=== PATIENT | female | born 1945 | race Caucasian/White ===

== ENCOUNTER 2020-03-18 16:42 | Emergency (ER) | payer MEDICARE, BC ==
--- NOTE | 2020-03-18 17:21 | CR ---
INDICATION: Pain after a fall. LEFT ANKLE: Four images of the left ankle with three projections revealed an oblique fracture through the distal shaft - metaphysis of the fibula with minimal lateral offset of the distal fracture fragment and overlying soft tissue swelling at the lateral malleolus. The ankle mortise otherwise appeared fairly intact. Dome of the talus was intact. No other significant bone or joint abnormality was suggested. IMPRESSION: Distal fibular fracture fragments with adequate position and alignment. MTDD
[2020-03-18] MEDS ORDERED: Naproxen 500 MG Tab PO ONE (17:47)
[2020-03-18] MEDS ORDERED: Acetaminophen 500 MG Tab PO ONE (17:47)
--- NOTE | 2020-03-18 17:53 | EDM.PDOC ---
ED HPI GENERAL MEDICAL PROBLEM - General Chief Complaint: Lower Extremity Injury/Pain Stated Complaint: FELL,HURT LEFT ANKLE Time Seen by Provider: 03/18/20 16:50 Source of Information: Reports: Patient, Family History Limitations: Reports: No Limitations - History of Present Illness INITIAL COMMENTS - FREE TEXT/NARRATIVE: Patient presented to the ED because of a left ankle pain. She was apparently standing on a bar stool, tipped over , fell and landed on her left ankle. She c/o 5/10 pain which is worse with ambulation. left ankle Pain Score (Numeric/FACES): 6 - Related Data Allergies Allergy/AdvReac Type Severity Reaction Status Date / Time No Known Allergies Allergy Verified 03/18/20 16:50 Home Meds: Home Meds Levothyroxine [Synthroid] 100 mcg PO ACBREAKFAST 03/18/20 [History] Past Medical History Endocrine/Metabolic History: Reports: Hypothyroidism Social & Family History - Tobacco Use Tobacco Use Status *Q: Never Tobacco User Review of Systems - Review of Systems Review Of Systems: See Below Constitutional: Reports: No Symptoms Ears: Reports: No Symptoms Nose: Reports: No Symptoms Mouth/Throat: Reports: No Symptoms Respiratory: Reports: No Symptoms Cardiovascular: Reports: No Symptoms GI/Abdominal: Reports: No Symptoms Genitourinary: Reports: No Symptoms Musculoskeletal: Reports: Other (left ankle pain) Skin: Reports: No Symptoms ED EXAM, GENERAL - Physical Exam Exam: See Below Exam Limited By: No Limitations General Appearance: Alert, No Apparent Distress Ears: Normal External Exam, Normal Canal Nose: Normal Inspection, Normal Mucosa, No Blood Throat/Mouth: Normal Inspection, Normal Lips, Normal Teeth Head: Atraumatic, Normocephalic Neck: Normal Inspection, Supple, Non-Tender, Full Range of Motion Respiratory/Chest: No Respiratory Distress, Lungs Clear, Normal Breath Sounds Cardiovascular: Normal Peripheral Pulses, Regular Rate, Rhythm, No Edema, No Gallop, No JVD, No Murmur GI/Abdominal: Normal Bowel Sounds, Soft, Non-Tender, No Organomegaly Back Exam: Normal Inspection, Full Range of Motion Extremities: Normal Inspection, Normal Range of Motion, Other (tenderness and swelling lleft ankle-lateral side) Neurological: Alert, Oriented, CN II-XII Intact Course - Vital Signs Text/Narrative:: Xray left ankle-see result Naproxen 500 mg and tylenol 1000 mg po x1 crutches and ortho boots provided Last Recorded V/S: Last Vital Signs Temp 36.4 C 03/18/20 18:00 Pulse 75 03/18/20 18:00 Resp 17 03/18/20 18:00 BP 137/89 03/18/20 18:00 Pulse Ox 95 03/18/20 18:00 - Orders/Labs/Meds Meds: Medications Discontinued Medications Generic Name Dose Route Start Last Admin Trade Name Emery PRMaritza Reason Stop Dose Admin Acetaminophen 1,000 mg 03/18/20 17:47 03/18/20 17:53 Tylenol Extra Strength PO 03/18/20 17:48 1,000 mg ONETIME ONE Administration Naproxen 500 mg 03/18/20 17:47 03/18/20 17:53 Naprosyn PO 03/18/20 17:48 500 mg ONETIME ONE Administration Departure - Departure Time of Disposition: 18:00 Disposition: Home, Self-Care 01 Condition: Good Clinical Impression: Left fibular fracture, Fracture of fibula - Discharge Information Instructions: Crutch Use, Adult, [id number], Ankle Fracture Referrals: Elroy Hensley MD [Primary Care Provider] - Forms: ED Department Discharge Additional Instructions: Please read discharge instructions on fibular fracture Wear your ortho boots at all times except when you apply ice Do not step on your left foot Take aleve, 2 tablets with tylenol 1000 mg every 12 hours as needed for pain Follow up with your orthopedic surgeon in 7 days Sepsis Event Note (ED) - Evaluation Sepsis Screening Result: No Definite Risk - Focused Exam Vital Signs: Vital Signs Temp Pulse Resp BP Pulse Ox 03/18/20 18:00 36.4 C 75 17 137/89 95 03/18/20 16:42 36.6 C 32 L 17 107/77 95
== END 2020-03-18 18:25 | disposition home or self-care (01) ==
LOC: FB.ED 16:42
DX: S82.832A Other fracture of upper and lower end of left fibula, initial encounter for closed fracture (principal); E03.9 Hypothyroidism, unspecified; Z79.899 Other long term (current) drug therapy; W08.XXXA Fall from other furniture, initial encounter
CPT/HCPCS: 73610-LT; 99283; A9270-GY

== ENCOUNTER 2023-05-20 10:32 | Inpatient (IN) | payer MEDICARE, BC ==
[2023-05-20] MEDS ORDERED: Sodium Chloride 0.9% 10 ML Syringe FLUSH PRN (10:44)
[2023-05-20 11:19] LABS: BASOPHILS PERCENT AUTO 0.2 % (0.2-1.5); HEMATOCRIT 42.3 % (34.2-48.2); HEMOGLOBIN 14.3 g/dL (11.4-15.5); LYMPHOCYTES ABSOLUTE AUTO 0.9 x10-3/uL (1.0-4.4); LYMPHOCYTES PERCENT AUTO 11.4 % (18.4-52.1); MEAN CORPUSCULAR HEMOGLOBIN 29.8 pg (23.9-33.9); MEAN CORPUSCULAR HGB CONC 33.7 g/dL (31.9-34.8); MEAN CORPUSCULAR VOLUME 88.4 fL (76.7-100.5); MEAN PLATELET VOLUME 9.6 fL (7.1-12.4); MONOCYTES ABSOLUTE AUTO 1.1 x10-3/uL (0.3-1.0); NEUTROPHILS ABSOLUTE AUTO 6.1 x10-3/uL (1.5-6.3); NEUTROPHILS PERCENT AUTO 75.4 % (30.8-76.2); PLATELET COUNT,PLT 168 x10(3)uL (151-488); RED BLOOD CELL COUNT 4.79 x10(6)uL (3.60-5.20); RED CELL DISTRIBUTION WIDTH 14.1 % (12.3-16.5); WHITE BLOOD CELL COUNT,WBC 8.1 x10-3/uL (3.0-10.3)
[2023-05-20 11:20] LABS: BLOOD UREA NITROGEN,BUN 12 mg/dL (7-18); CALCIUM 9.4 mg/dL (8.6-10.2); CARBON DIOXIDE,CO2 30 mmol/L (21-32); CHLORIDE,CL 101 mmol/L (100-110); CREATININE 0.6 mg/dL (0.55-1.02); ESTIMATED GFR 93 mL/min (>60); GLUCOSE RANDOM 134 mg/dL (80-116); POTASSIUM,K 3.5 mmol/L (3.5-5.3); SODIUM,NA 139 mmol/L (135-145)
[2023-05-20 11:26] LABS: A/G RATIO 0.7; ALANINE AMINOTRANSFERASE,ALT 17 U/L (12-36); ALBUMIN 2.7 g/dL (3.2-4.6); ALKALINE PHOSPHATASE 93 IU/L (56-112); AMYLASE 41 U/L (25-115); ASPARTATE AMNIOTRANSFERASE,AST 25 IU/L (5-25); BILIRUBIN TOTAL 0.7 mg/dL (0.1-1.3); PROTEIN TOTAL,TP 6.6 g/dL (6.0-8.0)
[2023-05-20 11:30] LABS: LACTIC ACID 0.6 mmol/L (0.4-2.0)
[2023-05-20 11:42] LABS: BILIRUBIN,URINE NEGATIVE (NEGATIVE); GLUCOSE,URINE NORMAL (NORMAL); KETONES,URINE 50 mg/dL (NEGATIVE); LEUKOCYTE ESTERASE,URINE NEGATIVE (NEGATIVE); NITRITE,URINE NEGATIVE (NEGATIVE); OCCULT BLOOD,URINE NEGATIVE (NEGATIVE); PROTEIN,URINE TRACE mg/dL (NEGATIVE); UROBILINOGEN,URINE 1 mg/dL (NEGATIVE)
[2023-05-20 11:46] LABS: APPEARANCE,URINE CLEAR (CLEAR); COLOR,URINE YELLOW (YELLOW)
[2023-05-20 11:47] LABS: BACTERIA,URINE FEW (NS); SQUAMOUS EPITHELIAL CELLS,UR OCCASIONAL (NS,R,O); WBC,URINE 0-5 (0-5)
[2023-05-20] MEDS: Sodium Chloride 0.9% 1,000 ML IV SCH ×2 (12:00→13:53)
[2023-05-20] MEDS: Iopamidol 755 Mg/ML 100 ML Bottle IV SCH (12:10)
[2023-05-20] MEDS ORDERED: Ondansetron 4 MG/2 ML SDV IV PRN (17:41)
[2023-05-20 19:00] LABS: INFLUENZA A NAA NEGATIVE (NEGATIVE); INFLUENZA B NAA NEGATIVE (NEGATIVE); RESPIRATORY SYNCYTIAL VIR NAA NEGATIVE (NEGATIVE)
[2023-05-20 19:01] LABS: CORONAVIRUS COVID-19 NAA NEGATIVE (NEGATIVE)
[2023-05-20] MEDS: Enoxaparin 40 MG/0.4 ML Syringe SUBCUT SCH (20:53)
[2023-05-20] MEDS: Sennosides/Docusate Sodium 50-8.6 MG Tab PO PRN (20:56)
[2023-05-21 07:11] LABS: BASOPHILS PERCENT AUTO 0.3 % (0.2-1.5); EOSINOPHILS PERCENT AUTO 0.2 % (0.6-8.1); HEMOGLOBIN 13.9 g/dL (11.4-15.5); LYMPHOCYTES ABSOLUTE AUTO 1.9 x10-3/uL (1.0-4.4); LYMPHOCYTES PERCENT AUTO 24.4 % (18.4-52.1); MEAN CORPUSCULAR HEMOGLOBIN 29.6 pg (23.9-33.9); MEAN CORPUSCULAR VOLUME 89.7 fL (76.7-100.5); MEAN PLATELET VOLUME 10.1 fL (7.1-12.4); MONOCYTES ABSOLUTE AUTO 1.3 x10-3/uL (0.3-1.0); MONOCYTES PERCENT AUTO 15.8 % (4.4-15.7); NEUTROPHILS ABSOLUTE AUTO 4.7 x10-3/uL (1.5-6.3); NEUTROPHILS PERCENT AUTO 59.3 % (30.8-76.2); PLATELET COUNT,PLT 157 x10(3)uL (151-488); RED BLOOD CELL COUNT 4.68 x10(6)uL (3.60-5.20); RED CELL DISTRIBUTION WIDTH 14.1 % (12.3-16.5)
[2023-05-21 07:18] LABS: A/G RATIO 0.6; ALANINE AMINOTRANSFERASE,ALT 18 U/L (12-36); ALBUMIN 2.3 g/dL (3.2-4.6); ALKALINE PHOSPHATASE 93 IU/L (56-112); ASPARTATE AMNIOTRANSFERASE,AST 24 IU/L (5-25); BILIRUBIN TOTAL 0.5 mg/dL (0.1-1.3); BLOOD UREA NITROGEN,BUN 9 mg/dL (7-18); CALCIUM 8.8 mg/dL (8.6-10.2); CARBON DIOXIDE,CO2 29 mmol/L (21-32); CHLORIDE,CL 107 mmol/L (100-110); CREATININE 0.5 mg/dL (0.55-1.02); ESTIMATED GFR 97 mL/min (>60); GLUCOSE RANDOM 102 mg/dL (80-116); POTASSIUM,K 3.3 mmol/L (3.5-5.3); PROTEIN TOTAL,TP 5.9 g/dL (6.0-8.0); SODIUM,NA 142 mmol/L (135-145)
[2023-05-21] MEDS: Citalopram 20 MG Tab PO SCH (10:05)
[2023-05-21] MEDS: Divalproex Sodium Delayed-Release 250 MG Tab.CR PO SCH (10:05)
[2023-05-21] MEDS: hydrOXYzine HCl 25 MG Tab PO SCH (14:36)
[2023-05-21] MEDS: Potassium Chloride 20 MEQ Tab.ER PO SCH (17:50)
[2023-05-21] MEDS: Memantine 10 MG Tab PO SCH (21:36)
[2023-05-21] MEDS: Donepezil 5 MG Tab PO SCH (21:36)
[2023-05-21] MEDS: Calcium Carbonate 500 MG Tablet PO SCH (21:36)
[2023-05-21] MEDS: QUEtiapine 100 MG Tab PO SCH (23:16)
[2023-05-21] MEDS: Melatonin 3 MG Tab PO SCH (23:16)
[2023-05-22] MEDS: Levothyroxine 100 MCG Tab PO SCH (06:29)
[2023-05-22 07:21] LABS: BLOOD UREA NITROGEN,BUN 5 mg/dL (7-18); BUN/CREATININE RATIO 12.5 (9-20); CALCIUM 8.3 mg/dL (8.6-10.2); CARBON DIOXIDE,CO2 29 mmol/L (21-32); CHLORIDE,CL 102 mmol/L (100-110); CREATININE 0.4 mg/dL (0.55-1.02); EST CRCL DRUG DOSING (CG) 116.35 mL/min; ESTIMATED GFR 103 mL/min (>60); GLUCOSE RANDOM 123 mg/dL (80-116); SODIUM,NA 136 mmol/L (135-145)
[2023-05-22] MEDS: Polyethylene Glycol 3350 Powder 17 GM Packet PO SCH (09:41)
[2023-05-22] MEDS: Potassium Chloride 20 MEQ Tab.ER PO SCH (14:42)
[2023-05-22] MEDS: Sodium Chloride 0.9% 500 ML IV ONE ×2 (17:06→17:07)
[2023-05-23 06:56] LABS: BLOOD UREA NITROGEN,BUN 3 mg/dL (7-18); BUN/CREATININE RATIO 7.5 (9-20); CALCIUM 8.6 mg/dL (8.6-10.2); CARBON DIOXIDE,CO2 28 mmol/L (21-32); CHLORIDE,CL 102 mmol/L (100-110); CREATININE 0.4 mg/dL (0.55-1.02); EST CRCL DRUG DOSING (CG) 116.35 mL/min; ESTIMATED GFR 103 mL/min (>60); GLUCOSE RANDOM 125 mg/dL (80-116); SODIUM,NA 136 mmol/L (135-145)
[2023-05-23] MEDS ORDERED: QUEtiapine 25 MG Tab PO PRN (17:45)
[2023-05-23] MEDS: Donepezil 10 MG Tab PO SCH (21:54)
[2023-05-23] MEDS: Potassium Chloride 20 MEQ Tab.ER PO SCH (21:55)
[2023-05-23] MEDS: Polyethylene Glycol 3350 Powder 17 GM Packet PO SCH (21:56)
[2023-05-23] MEDS: Melatonin 3 MG Tab PO SCH (21:57)
[2023-05-24 07:49] LABS: BLOOD UREA NITROGEN,BUN 5 mg/dL (7-18); CALCIUM 8.5 mg/dL (8.6-10.2); CARBON DIOXIDE,CO2 26 mmol/L (21-32); CHLORIDE,CL 103 mmol/L (100-110); CREATININE 0.5 mg/dL (0.55-1.02); EST CRCL DRUG DOSING (CG) 93.08 mL/min; ESTIMATED GFR 97 mL/min (>60); GLUCOSE RANDOM 105 mg/dL (80-116); SODIUM,NA 135 mmol/L (135-145)
[2023-05-24 09:56] LABS: BASOPHILS PERCENT AUTO 0.1 % (0.2-1.5); EOSINOPHILS PERCENT AUTO 0.3 % (0.6-8.1); HEMATOCRIT 44.2 % (34.2-48.2); HEMOGLOBIN 14.7 g/dL (11.4-15.5); LYMPHOCYTES ABSOLUTE AUTO 0.8 x10-3/uL (1.0-4.4); LYMPHOCYTES PERCENT AUTO 8.6 % (18.4-52.1); MEAN CORPUSCULAR HEMOGLOBIN 29.3 pg (23.9-33.9); MEAN CORPUSCULAR HGB CONC 33.1 g/dL (31.9-34.8); MEAN CORPUSCULAR VOLUME 88.5 fL (76.7-100.5); MEAN PLATELET VOLUME 9.5 fL (7.1-12.4); MONOCYTES ABSOLUTE AUTO 1.3 x10-3/uL (0.3-1.0); MONOCYTES PERCENT AUTO 13.2 % (4.4-15.7); NEUTROPHILS ABSOLUTE AUTO 7.7 x10-3/uL (1.5-6.3); NEUTROPHILS PERCENT AUTO 77.8 % (30.8-76.2); PLATELET COUNT,PLT 229 x10(3)uL (151-488); RED BLOOD CELL COUNT 4.99 x10(6)uL (3.60-5.20); RED CELL DISTRIBUTION WIDTH 14.4 % (12.3-16.5); WHITE BLOOD CELL COUNT,WBC 9.9 x10-3/uL (3.0-10.3)
[2023-05-24 10:04] LABS: A/G RATIO 0.5; ALANINE AMINOTRANSFERASE,ALT 32 U/L (12-36); ALBUMIN 2.2 g/dL (3.2-4.6); ALKALINE PHOSPHATASE 127 IU/L (56-112); ASPARTATE AMNIOTRANSFERASE,AST 39 IU/L (5-25); BILIRUBIN TOTAL 0.5 mg/dL (0.1-1.3); BLOOD UREA NITROGEN,BUN 5 mg/dL (7-18); CALCIUM 9.1 mg/dL (8.6-10.2); CARBON DIOXIDE,CO2 26 mmol/L (21-32); CHLORIDE,CL 102 mmol/L (100-110); CREATININE 0.5 mg/dL (0.55-1.02); EST CRCL DRUG DOSING (CG) 93.08 mL/min; ESTIMATED GFR 97 mL/min (>60); GLUCOSE RANDOM 140 mg/dL (80-116); PROTEIN TOTAL,TP 6.3 g/dL (6.0-8.0); SODIUM,NA 134 mmol/L (135-145)
[2023-05-24] MEDS ORDERED: Sodium Chloride 0.9% 500 ML IV SCH (11:00)
[2023-05-24] MEDS: Sodium Chloride 0.9% 500 ML IV ONE (12:00)
[2023-05-24] MEDS: Acetaminophen 325 MG Tab PO PRN (12:04)
[2023-05-24 13:33] LABS: APPEARANCE,URINE SLIGHTLY CLOUDY (CLEAR); BILIRUBIN,URINE NEGATIVE (NEGATIVE); COLOR,URINE YELLOW (YELLOW); GLUCOSE,URINE NORMAL (NORMAL); KETONES,URINE NEGATIVE (NEGATIVE); LEUKOCYTE ESTERASE,URINE LARGE (NEGATIVE); NITRITE,URINE NEGATIVE (NEGATIVE); OCCULT BLOOD,URINE MODERATE (NEGATIVE); PROTEIN,URINE NEGATIVE (NEGATIVE); UROBILINOGEN,URINE NORMAL (NEGATIVE)
[2023-05-24 13:35] LABS: RBC,URINE 0-5 (0-5); WBC,URINE >100 (0-5)
[2023-05-24 13:36] LABS: BACTERIA,URINE MANY (NS); SQUAMOUS EPITHELIAL CELLS,UR NOT SEEN (NS,R,O)
[2023-05-24] MEDS: Levofloxacin/Dextrose 5%-Water 500 MG in Premix Bag 1 BAG IV SCH (14:49)
[2023-05-25] MEDS: Potassium Chloride 20 MEQ Tab.ER PO SCH (08:57)
[2023-05-25] MEDS: cefTRIAXone 1 GM Vial IVPUSH SCH (09:52)
[2023-05-25] MEDS: Azithromycin 500 MG in Sodium Chloride 0.9% 250 ML IV SCH (09:54)
[2023-05-26] MEDS: Potassium Chloride 20 MEQ Tab.ER PO SCH (08:52)
[2023-05-26] MEDS: Levofloxacin 750 MG Tab PO SCH (10:49)
== END 2023-05-27 13:05 | disposition hospice, home (50) | DRG 947 ==
LOC: FB.ED 10:32 → FB.MS 17:51 → OBSVTOIN 05-21 10:11
PROVIDERS: ADMIT Family Medicine; ATTEND Family Medicine
DX: F03.90 Unspecified dementia, unspecified severity, without behavioral disturbance, psychotic disturbance, mood disturbance, and anxiety (principal); R53.1 Weakness; J18.9 Pneumonia, unspecified organism; N30.00 Acute cystitis without hematuria; F32.A Depression, unspecified; K59.00 Constipation, unspecified; F02.C4 Dementia in other diseases classified elsewhere, severe, with anxiety; F02.C3 Dementia in other diseases classified elsewhere, severe, with mood disturbance; F02.C18 Dementia in other diseases classified elsewhere, severe, with other behavioral disturbance; Z66 Do not resuscitate; Z51.5 Encounter for palliative care; F41.1 Generalized anxiety disorder; T42.6X5A Adverse effect of other antiepileptic and sedative-hypnotic drugs, initial encounter; E03.9 Hypothyroidism, unspecified; K21.9 Gastro-esophageal reflux disease without esophagitis; E86.0 Dehydration; E87.6 Hypokalemia; K59.01 Slow transit constipation; G30.1 Alzheimer's disease with late onset; F33.41 Major depressive disorder, recurrent, in partial remission; B96.20 Unspecified Escherichia coli [E. coli] as the cause of diseases classified elsewhere; Z79.899 Other long term (current) drug therapy; Z79.890 Hormone replacement therapy; M81.0 Age-related osteoporosis without current pathological fracture
CPT/HCPCS: 0241U; 36415; 70450; 71045; 71046; 74177; 80048; 80053; 81001; 82150; 83605; 83690; 84484; 85025; 87086; 87088; 87186; 93005; 93010; 96360; 96361; 96372; 97161-GP; 97165-GO; 99223; 99233; 99238; 99285; 99285-25; A9270-GY; G0378; J0456; J0696; J1650; J1956; J7030; J7040; J7050; Q9967